=== PATIENT | female | born 1950 | race African-American/Black ===

== ENCOUNTER 2023-10-02 18:36 | Emergency (ER) | payer MEDICAID, OTHER ==
[~2023-10-02] VITALS: Ht 165.1 cm; Wt 73.3 kg
[2023-10-03 04:38] LABS: APPEARANCE, URINE CLEAR (CLEAR); BACTERIA, URINE AUTO 1+ (NEGATIVE); BILIRUBIN, URINE AUTO NEGATIVE (NEGATIVE); BLOOD, URINE BLOOD NEGATIVE (NEGATIVE); COLOR, URINE YELLOW (YELLOW); GLUCOSE, URINE (UA) AUTO NEGATIVE (NEGATIVE); KETONE, URINE AUTO NEGATIVE (NEGATIVE); LEUKOCYTE ESTERASE, URINE AUTO NEGATIVE (NEGATIVE); MUCUS, URINE SMALL (NEGATIVE); NITRITE, URINE AUTO NEGATIVE (NEGATIVE); PROTEIN, URINE AUTO NEGATIVE (NEGATIVE); RBC, URINE AUTO 1 /HPF (0-3); SQUAMOUS EPITHELIAL CELL UR AU 2 /HPF (0-6); UROBILINOGEN, URINE AUTO 0.2 mg/dL (0.0-2.0); WBC, URINE AUTO 1 /HPF (0-3)
[2023-10-03 04:48] LABS: BASO % 0.5 % (0.0-1.0); EOS # 0.1 10^3/uL (0.0-0.5); EOS % 1.4 % (0.0-3.0); HEMATOCRIT 44.6 % (36.0-47.0); LYMPH # 2.8 10^3/uL (1.5-5.0); LYMPH % 49.5 % (24.0-44.0); MEAN CORPUSCULAR HEMOGLOBIN 29.7 pg (27.0-33.0); MEAN CORPUSCULAR HGB CONC 33.6 g/dl (32.0-36.5); MEAN CORPUSCULAR VOLUME 88.3 fl (80.0-96.0); MONO # 0.3 10^3/uL (0.0-0.8); MONO % 5.9 % (2.0-8.0); NEUTROPHILS # 2.4 10^3/uL (1.5-8.5); NEUTROPHILS % 42.5 % (36.0-66.0); PLATELET COUNT, AUTOMATED 281 10^3/uL (150-450); RED BLOOD COUNT 5.05 10^6/uL (4.00-5.40); WHITE BLOOD COUNT 5.6 10^3/uL (4.0-10.0)
[2023-10-03 05:10] LABS: ALBUMIN 3.5 G/DL (3.2-5.2); ALKALINE PHOSPHATASE 76 U/L (46-116); ALT/SGPT 11 U/L (7.0-40); AST/SGOT < 8 U/L (<34); BILIRUBIN,TOTAL 0.5 MG/DL (0.3-1.2); BLOOD UREA NITROGEN 13 MG/DL (9-23); CALCIUM LEVEL 8.9 MG/DL (8.3-10.6); CARBON DIOXIDE LEVEL 22 MMOL/L (20-31); CHLORIDE LEVEL 110 MMOL/L (98-107); CREATININE FOR GFR 0.65 MG/DL (0.55-1.30); GLOMERULAR FILTRATION RATE > 60.0 (>39); GLUCOSE, FASTING 164 MG/DL (74-106); SODIUM LEVEL 142 MMOL/L (136-145); TOTAL PROTEIN 7.4 G/DL (5.7-8.2)
[2023-10-03 05:17] LABS: HEMOGLOBIN A1c 6.5 % (4.0-6.0)
[2023-10-03] MEDS: LevoFLOXacin 750 MG TABLET PO ONE (05:49)
[2023-10-03 05:53] VITALS: BP 149/82; TEMP 97.4; O2SAT 97
[2023-10-03] MEDS ORDERED: LEVO750T14 PO (06:54)
== END 2023-10-03 07:51 | disposition home or self-care (01) ==
LOC: M ED 18:36
DX: J18.9 Pneumonia, unspecified organism (principal); M50.30 Other cervical disc degeneration, unspecified cervical region; E11.9 Type 2 diabetes mellitus without complications; I10 Essential (primary) hypertension; E78.5 Hyperlipidemia, unspecified; Z86.79 Personal history of other diseases of the circulatory system; Z79.2 Long term (current) use of antibiotics

== ENCOUNTER 2023-11-30 10:03 | Emergency (ER) | payer OTHER, SELFPAY ==
[~2023-11-30] VITALS: Ht 165.1 cm; Wt 71.9 kg
[2023-11-30 10:03] VITALS: TEMP 97.6
[~2023-11-30 10:03] MED LIST: LEVO750T14 PO
[2023-11-30 11:14] LABS: BASO % 0.2 % (0.0-1.0); EOS % 0.4 % (0.0-3.0); HEMATOCRIT 44.8 % (36.0-47.0); HEMOGLOBIN 15.6 g/dl (12.0-15.5); LYMPH # 1.6 10^3/uL (1.5-5.0); LYMPH % 34.6 % (24.0-44.0); MEAN CORPUSCULAR HEMOGLOBIN 30.2 pg (27.0-33.0); MEAN CORPUSCULAR HGB CONC 34.8 g/dl (32.0-36.5); MEAN CORPUSCULAR VOLUME 86.8 fl (80.0-96.0); MONO # 0.2 10^3/uL (0.0-0.8); MONO % 4.8 % (2.0-8.0); NEUTROPHILS # 2.8 10^3/uL (1.5-8.5); NEUTROPHILS % 59.8 % (36.0-66.0); PLATELET COUNT, AUTOMATED 260 10^3/uL (150-450); RED BLOOD COUNT 5.16 10^6/uL (4.00-5.40); WHITE BLOOD COUNT 4.6 10^3/uL (4.0-10.0)
[2023-11-30 11:39] LABS: CK-MB VALUE MASS < 1.0 NG/ML (<3.6)
[2023-11-30 11:44] LABS: ALBUMIN 3.8 G/DL (3.2-5.2); ALKALINE PHOSPHATASE 87 U/L (46-116); ALT/SGPT 12 U/L (7.0-40); AST/SGOT < 8 U/L (<34); BILIRUBIN,DIRECT 0.3 MG/DL (<0.4); BILIRUBIN,TOTAL 1.3 MG/DL (0.3-1.2); BLOOD UREA NITROGEN 10 MG/DL (9-23); CALCIUM LEVEL 9.6 MG/DL (8.3-10.6); CARBON DIOXIDE LEVEL 23 MMOL/L (20-31); CHLORIDE LEVEL 104 MMOL/L (98-107); CREATININE FOR GFR 0.68 MG/DL (0.55-1.30); GLOMERULAR FILTRATION RATE > 60.0 (>39); GLUCOSE, FASTING 263 MG/DL (74-106); POTASSIUM SERUM 4.2 MMOL/L (3.5-5.1); SODIUM LEVEL 136 MMOL/L (136-145); TOTAL PROTEIN 7.3 G/DL (5.7-8.2)
[2023-11-30 11:46] LABS: CPK CREATINE PHOSPHOKINASE 39 U/L (34-145); MB/CK RELATIVE INDEX 2.56 (< OR =4)
[2023-11-30 12:46] LABS: CK-MB VALUE MASS < 1.0 NG/ML (<3.6)
[2023-11-30 12:47] LABS: CPK CREATINE PHOSPHOKINASE 31 U/L (34-145); MB/CK RELATIVE INDEX 3.22 (< OR =4)
[2023-11-30] MEDS ORDERED: MECL-86 PO ×2 (15:58→16:11)
[2023-11-30] MEDS ORDERED: FAMO20TA PO ×2 (15:58→16:11)
[2023-11-30] MEDS ORDERED: FISH1CAP26 FT ×2 (15:58→16:11)
[2023-11-30] MEDS ORDERED: HYDR25TA87 PO ×2 (15:58→16:11)
[2023-11-30] MEDS ORDERED: METF10004 PO ×2 (15:58→16:11)
[2023-11-30] MEDS ORDERED: HYDR12.55 PO ×2 (15:58→16:11)
[2023-11-30] MEDS ORDERED: AMLO1TAB25 PO ×2 (15:58→16:11)
[2023-11-30] MEDS ORDERED: LISI40TA4 PO ×2 (15:58→16:11)
[2023-11-30] MEDS ORDERED: LEVO25TA5 PO ×2 (15:58→16:11)
[2023-11-30] MEDS ORDERED: ROSU40TA63 PO ×2 (15:58→16:11)
[2023-11-30] MEDS ORDERED: XALA0.007 OU ×2 (16:04→16:11)
[2023-11-30] MEDS ORDERED: TOUJ1.2I SC ×2 (16:04→16:11)
[2023-11-30] MEDS ORDERED: OLOP5DRO17 OU ×2 (16:04→16:11)
[2023-11-30] MEDS ORDERED: TRIA0.5O TOP ×2 (16:04→16:11)
[2023-11-30] MEDS ORDERED: SYST1SOL4 OU ×2 (16:04→16:11)
[2023-11-30 18:36] VITALS: BP 131/82
[2023-11-30 18:51] VITALS: O2SAT 100
== END 2023-11-30 19:15 | disposition home or self-care (01) ==
LOC: M ED 10:03
DX: R51.9 Headache, unspecified (principal); Z76.0 Encounter for issue of repeat prescription; J34.2 Deviated nasal septum; E11.9 Type 2 diabetes mellitus without complications; I10 Essential (primary) hypertension; E78.5 Hyperlipidemia, unspecified; Z86.79 Personal history of other diseases of the circulatory system; Z79.811 Long term (current) use of aromatase inhibitors; Z79.4 Long term (current) use of insulin; Z79.899 Other long term (current) drug therapy